=== PATIENT | male | born 1980 | race African-American/Black ===

== ENCOUNTER 2018-08-29 15:53 | Inpatient (IN) | payer MEDICAID ==
[~2018-08-29] VITALS: Ht 175.3 cm; Wt 103.4 kg
[~2018-08-29 15:53] MED LIST: ALBU8HFA IH; SERT20OR PO
[2018-08-29] MEDS ORDERED: LORazepam 2 MG TABLET PO PRN (16:45)
[2018-08-29] MEDS ORDERED: ZOLPIDEM TARTRATE 10 MG TABLET PO PRN (16:45)
[2018-08-29] MEDS ORDERED: HALOPERIDOL 5 MG TABLET PO PRN (16:45)
[2018-08-29 17:06] VITALS: BP 106/65
[2018-08-29 18:30] VITALS: BP 111/70
[2018-08-30 05:59] VITALS: BP 118/70
[2018-08-30] MEDS ORDERED: LOPERAMIDE HCL 2 MG CAPSULE PO PRN (07:15)
[2018-08-30] MEDS ORDERED: DOCUSATE SODIUM 100 MG CAPSULE PO PRN (07:15)
[2018-08-30] MEDS ORDERED: BACITRACIN 28.4 GM OINTMENT TP PRN (07:15)
[2018-08-30] MEDS ORDERED: PETROLATUM,WHITE 28 GM JELLY TP PRN (07:15)
[2018-08-30] MEDS ORDERED: MAG HYDROX/AL HYDROX/SIMETH ES 30 ML SUSPENSION UDCUP PO PRN (07:15)
[2018-08-30] MEDS ORDERED: ONDANSETRON HCL 4 MG TABLET PO PRN (07:15)
[2018-08-30] MEDS ORDERED: IBUPROFEN 600 MG TABLET PO PRN (07:15)
[2018-08-30] MEDS ORDERED: BENZOCAINE/MENTHOL LOZENGE MM PRN (07:15)
[2018-08-30] MEDS ORDERED: CloNIDine HCL 0.1 MG TABLET PO PRN (07:15)
[2018-08-30] MEDS ORDERED: MAGNESIUM HYDROXIDE SUSPENSION 30 ML UDCUP PO PRN (07:15)
[2018-08-30] MEDS ORDERED: ALBUTEROL SULFATE HFA 90 MCG/PUFF 8 GM INHALER IH PRN (07:15)
[2018-08-30] MEDS ORDERED: ACETAMINOPHEN 325 MG TABLET PO PRN (07:15)
[2018-08-30] MEDS ORDERED: OMEPRAZOLE 20 MG CAPSULE PO PRN (07:15)
[2018-08-30 07:42] LABS: BASOPHILS % (AUTO) 1.1 % (0.0-2.0); EOSINOPHILS % (AUTO) 2.6 % (1.0-6.0); HEMATOCRIT 41.7 % (41-53); HEMOGLOBIN 14.2 g/dL (13.5-17.5); LYMPHOCYTES # (AUTO) 1.9 K/uL (1.0-4.8); LYMPHOCYTES % (AUTO) 26.1 % (22.0-44.0); MEAN CORPUSCULAR HEMOGLOBIN 34.5 pg (26.0-34.0); MEAN CORPUSCULAR HGB CONC 34.1 G/dL (31.0-37.0); MEAN CORPUSCULAR VOLUME 101 fL (80-100); MONOCYTES # (AUTO) 0.7 K/uL (0.1-1.0); MONOCYTES % (AUTO) 9.1 % (2.0-9.0); NEUTROPHILS # (AUTO) 4.4 K/uL (1.8-7.7); NEUTROPHILS % (AUTO) 61.1 % (40.0-70.0); PLATELET COUNT (AUTO) 140 K/uL (150-450); RED BLOOD CELL COUNT(AUTO) 4.12 MIL/uL (4.50-5.90)
[2018-08-30 08:06] LABS: HEMOGLOBIN A1C 4.1 % (4.5-6.2)
[2018-08-30 08:22] LABS: ALANINE AMINOTRANSFERASE 44 U/L (12-78); ALBUMIN 3.9 g/dL (3.4-5.0); ALKALINE PHOSPHATASE 85 U/L (46-116); ANION GAP 8 mmol/L (8-16); ASPARTATE AMINOTRANSFERASE 32 U/L (15-37); BILIRUBIN,TOTAL 1.2 mg/dL (0.1-1.0); CALCIUM, TOTAL 8.9 mg/dL (8.8-10.5); CARBON DIOXIDE 27 mmol/L (22-29); CHLORIDE 106 mmol/L (98-107); CHOL/HDL RATIO 2.5 (4.2-7.3); CHOLESTEROL 108 mg/dL (131-200); CREATININE 1.12 mg/dL (0.60-1.30); FREE T4 (FREE THYROXINE) 0.83 ng/dL (0.76-1.46); GLOMERULAR FILTR. RATE CALC > 60 mL/min (>60); GLUCOSE,RANDOM 83 mg/dL (70-110); HDL CHOLESTEROL 43 mg/dL (40-60); LDL CHOL (CALC.) 55 mg/dL (0-130); POTASSIUM 4.1 mmol/L (3.5-5.1); SODIUM SERUM 141 mmol/L (136-145); THYROID STIMULATING HORMONE 2.89 uIU/mL (0.36-3.74); TOTAL PROTEIN, SERUM 7.3 g/dL (6.4-8.2); TRIGLYCERIDES 52 mg/dL (15-150)
[2018-08-30 08:30] LABS: UREA NITROGEN, BLOOD 17 mg/dL (7-18)
[2018-08-30 08:33] VITALS: BP 100/60
[2018-08-30] MEDS: SERTRALINE HCL 50 MG TABLET PO SCH (12:20)
[2018-08-30 16:37] VITALS: BP 120/76
[2018-08-30] MEDS: RisperiDONE 2 MG TABLET PO SCH (20:13)
[2018-08-30] MEDS ORDERED: RisperiDONE 2 MG TABLET PO SCH (21:00)
[2018-08-31 00:39] VITALS: BP 132/70
[2018-08-31] MEDS: SERTRALINE HCL 50 MG TABLET PO SCH (08:14)
[2018-08-31 08:31] VITALS: BP 116/73
[2018-08-31 16:27] VITALS: BP 125/62
[2018-08-31] MEDS: RisperiDONE 2 MG TABLET PO SCH (20:06)
[2018-09-01 06:04] VITALS: BP 120/81
[2018-09-01] MEDS: SERTRALINE HCL 50 MG TABLET PO SCH (08:06)
[2018-09-01 08:11] VITALS: BP 125/68
[2018-09-01] MEDS: RisperiDONE 2 MG TABLET PO SCH ×2 (12:31→20:18)
[2018-09-01 16:08] VITALS: BP 128/73
[2018-09-02 01:45] VITALS: BP 103/64
[2018-09-02] MEDS: RisperiDONE 2 MG TABLET PO SCH ×2 (08:20→20:14)
[2018-09-02] MEDS: SERTRALINE HCL 50 MG TABLET PO SCH (08:20)
[2018-09-02 08:24] VITALS: BP 123/71
[2018-09-02] MEDS ORDERED: SERT50TA12 PO (11:55)
[2018-09-02 16:23] VITALS: BP 134/72
[2018-09-03 00:06] VITALS: BP 124/66
[2018-09-03] MEDS: RisperiDONE 2 MG TABLET PO SCH (08:06)
[2018-09-03 08:23] VITALS: BP 121/71
[2018-09-03] MEDS ORDERED: SERTRALINE HCL 100 MG TABLET PO SCH (09:00)
[2018-09-03] MEDS ORDERED: RISP2TAB22 PO (11:07)
[2018-09-03] MEDS ORDERED: SERT100T12 PO (11:07)
== END 2018-09-03 13:41 | disposition home or self-care (01) | DRG 753 ==
LOC: B2S 16:47
PROVIDERS: ADMIT Psychiatry & Neurology Psychiatry; ATTEND Psychiatry & Neurology Psychiatry
DX: F31.5 Bipolar disorder, current episode depressed, severe, with psychotic features (principal); R45.851 Suicidal ideations; K59.00 Constipation, unspecified; J45.909 Unspecified asthma, uncomplicated; G47.00 Insomnia, unspecified; F17.200 Nicotine dependence, unspecified, uncomplicated; F41.9 Anxiety disorder, unspecified; Z91.5 Personal history of self-harm; Z59.0 Homelessness; Z88.0 Allergy status to penicillin
CPT/HCPCS: 83036; 84439; 84443; J3535